=== PATIENT | male | born 1945 | race Caucasian/White ===

== ENCOUNTER 2022-01-17 19:29 | Inpatient (IN) | payer MEDICARE, OTHER ==
[~2022-01-17] VITALS: Ht 172.7 cm; Wt 77.0 kg
[2022-01-17 20:34] LABS: Hematocrit 36.1 % (41.0-53.0); Hemoglobin 11.5 g/dL (13.5-17.5); Mean Corpuscular Hemoglobin 28.9 pg (28.0-32.0); Mean Corpuscular Hgb Conc. 31.8 g/dL (32.0-36.0); Mean Corpuscular Volume 90.9 fL (80.0-100.0); Red Blood Cells 3.98 10^6/uL (4.5-5.90); Red Cell Distribution Width 18.1 % (11.8-14.3); White Blood Cell 7.6 10^3/uL (4.4-10.8)
[2022-01-17 20:53] LABS: Albumin 3.1 g/dL (3.4-5.0); BUN/Creatinine Ratio 18.3; Calcium 8.1 mg/dL (8.5-10.1); Potassium 4.4 mmol/L (3.5-5.1)
[2022-01-17 20:56] LABS: Bilirubin, Total 1.1 mg/dL (0.2-1.0); Total Protein 5.5 g/dL (6.4-8.2)
[2022-01-17 21:01] LABS: Basophils % (manual) 0 (0.0-2.0); Blast Cells 0; Eosinophils % (manual) 0 (0-7); Myelocytes % 0; Promyelocytes % 0; Reactive Lymphocytes 0
[2022-01-17 21:44] LABS: Band Neutrophils % (manual) 5; Lymphocytes % (manual) 1 (10.0-50.0); Metamyelocytes % 1; Monocytes % (manual) 2 (0-12)
[2022-01-17 23:54] LABS: Basophils # (auto) 0 10 ^3/uL (0-0.2); Basophils % (auto) 0.3 % (0.0-2.0); Eosinophils # (auto) 0 10 ^3/uL (0-0.8); Eosinophils % (auto) 0.1 % (0.0-7.0); Hematocrit 35.7 % (41.0-53.0); Hemoglobin 11.4 g/dL (13.5-17.5); Lymphocytes # (auto) 0.5 10 ^3/uL (0.4-5.4); Mean Corpuscular Hemoglobin 28.9 pg (28.0-32.0); Mean Corpuscular Hgb Conc. 31.8 g/dL (32.0-36.0); Mean Corpuscular Volume 90.8 fL (80.0-100.0); Monocytes # (auto) 0.5 10 ^3/uL (0-1.3); Monocytes % (auto) 5.8 % (0.0-12.0); Neutrophils # (auto) 7.8 10 ^3/uL (1.6-8.6); Neutrophils % (auto) 87.8 % (37.0-80.0); Nucleated Red Blood Cells % 0.2 %; Red Blood Cells 3.93 10^6/uL (4.5-5.90); Red Cell Distribution Width 17.7 % (11.8-14.3); White Blood Cell 8.9 10^3/uL (4.4-10.8)
[2022-01-18 00:05] LABS: Albumin 2.7 g/dL (3.4-5.0); Calcium 7.9 mg/dL (8.5-10.1); Potassium 4.6 mmol/L (3.5-5.1)
[2022-01-18 00:08] LABS: BUN/Creatinine Ratio 26.2; Bilirubin, Total 0.6 mg/dL (0.2-1.0); Total Protein 5.4 g/dL (6.4-8.2)
[2022-01-18] MEDS ORDERED: ONDANSETRON HCL 4 MG/2 ML VIAL IV ONE (03:15)
[2022-01-18] MEDS ORDERED: MORPHINE SULFATE 4 MG/ML SYR/VIAL IV ONE (03:15)
[2022-01-18] MEDS ORDERED: AZITHROMYCIN 500MG/ 250ML 250 ML IV ONE (03:15)
[2022-01-18] MEDS ORDERED: cefTRIAXone 1GM/50ML D5W 50 ML IV ONE (03:15)
[2022-01-18] MEDS ORDERED: ONDANSETRON HCL 4 MG/2 ML VIAL IV PRN (03:45)
[2022-01-18] MEDS ORDERED: MORPHINE SULFATE INJ 2 MG/ml SYRG IV PRN (03:45)
[2022-01-18] MEDS ORDERED: DOCUSATE SOD 100 MG CAP PO PRN (03:45)
[2022-01-18] MEDS ORDERED: ACETAMINOPHEN 325 MG TAB PO PRN (03:45)
[2022-01-18] MEDS ORDERED: NITROGLYCERIN 0.4 MG SL TAB SL PRN (03:45)
[2022-01-18 04:43] LABS: Basophils # (auto) 0 10 ^3/uL (0-0.2); Basophils % (auto) 0.1 % (0.0-2.0); Eosinophils # (auto) 0 10 ^3/uL (0-0.8); Eosinophils % (auto) 0.1 % (0.0-7.0); Hematocrit 36.7 % (41.0-53.0); Hemoglobin 11.8 g/dL (13.5-17.5); Lymphocytes # (auto) 0.5 10 ^3/uL (0.4-5.4); Mean Corpuscular Hemoglobin 28.9 pg (28.0-32.0); Mean Corpuscular Hgb Conc. 32.1 g/dL (32.0-36.0); Monocytes # (auto) 0.4 10 ^3/uL (0-1.3); Monocytes % (auto) 5.3 % (0.0-12.0); Neutrophils # (auto) 5.9 10 ^3/uL (1.6-8.6); Neutrophils % (auto) 86.5 % (37.0-80.0); Nucleated Red Blood Cells % 0.1 %; Red Blood Cells 4.08 10^6/uL (4.5-5.90); Red Cell Distribution Width 17.9 % (11.8-14.3); White Blood Cell 6.8 10^3/uL (4.4-10.8)
[2022-01-18 04:55] LABS: Albumin 2.8 g/dL (3.4-5.0); Calcium 8.2 mg/dL (8.5-10.1); Potassium 4.2 mmol/L (3.5-5.1)
[2022-01-18 05:00] LABS: Bilirubin, Total 0.6 mg/dL (0.2-1.0); Total Protein 5.7 g/dL (6.4-8.2)
[2022-01-18] MEDS ORDERED: ALBUMIN 25% 100 ML IV ONE (07:30)
[2022-01-18] MEDS: cefTRIAXone 1GM/50ML D5W 50 ML IV SCH (09:26)
[2022-01-18] MEDS: FAMOTIDINE (10MG/ML) 2ML VL IV SCH ×2 (11:11→22:37)
[2022-01-18] MEDS: AZITHROMYCIN 500MG/ 250ML 250 ML IV SCH (12:40)
[2022-01-18] MEDS ORDERED: CHOLECALCIFEROL (VITD3) 2,000 UNIT CAP/TAB PO ONE (17:00)
[2022-01-18] MEDS ORDERED: ZINC SULFATE 220mg CAP or TAB PO ONE (17:00)
[2022-01-18 21:11] LABS: Alcohol, Urine < 3.0 mg/dL (0-10); Amphetamine Screen, Urine NEGATIVE (NEGATIVE); Barbiturate Scree,Urine NEGATIVE (NEGATIVE); Benzodiazephine Screen, Urine NEGATIVE (NEGATIVE); Cannabinoid Screen, Urine NEGATIVE (NEGATIVE); Cocaine Screen, Urine NEGATIVE (NEGATIVE); Opiate Scree,Urine POSITIVE (NEGATIVE); Phencyclidine Screen, Urine NEGATIVE (NEGATIVE)
[2022-01-18 21:31] LABS: Urine Bacteria FEW /hpf (None Seen); Urine Blood Negative /uL (Negative); Urine Mucus FEW (None Seen); Urine Specific Gravity 1.016 (1.001-1.035); Urine WBC 1 /hpf (0 - 3)
[2022-01-18] MEDS: MORPHINE SULFATE INJ 2 MG/ml SYRG IV PRN (22:37)
[2022-01-18] MEDS: ASCORBIC ACID 500 MG TAB PO SCH (22:37)
[2022-01-19] MEDS: hydrALAZINE HCL 20 MG/ML VL IV PRN (00:36)
[2022-01-19 05:46] LABS: Basophils # (auto) 0 10 ^3/uL (0-0.2); Basophils % (auto) 0.2 % (0.0-2.0); Eosinophils # (auto) 0 10 ^3/uL (0-0.8); Eosinophils % (auto) 0.4 % (0.0-7.0); Hematocrit 34.8 % (41.0-53.0); Hemoglobin 11.7 g/dL (13.5-17.5); Lymphocytes # (auto) 0.5 10 ^3/uL (0.4-5.4); Lymphocytes % (auto) 6.1 % (10.0-50.0); Mean Corpuscular Hemoglobin 29.9 pg (28.0-32.0); Mean Corpuscular Hgb Conc. 33.7 g/dL (32.0-36.0); Mean Corpuscular Volume 88.9 fL (80.0-100.0); Monocytes # (auto) 0.6 10 ^3/uL (0-1.3); Monocytes % (auto) 6.4 % (0.0-12.0); Neutrophils # (auto) 7.7 10 ^3/uL (1.6-8.6); Neutrophils % (auto) 86.9 % (37.0-80.0); Nucleated Red Blood Cells % 0.1 %; Red Blood Cells 3.91 10^6/uL (4.5-5.90); Red Cell Distribution Width 17.7 % (11.8-14.3); White Blood Cell 8.9 10^3/uL (4.4-10.8)
[2022-01-19 05:47] LABS: Potassium 3.4 mmol/L (3.5-5.1)
[2022-01-19 05:50] LABS: Albumin 2.8 g/dL (3.4-5.0); BUN/Creatinine Ratio 32.6; Calcium 8.1 mg/dL (8.5-10.1)
[2022-01-19 05:59] LABS: Bilirubin, Total 0.8 mg/dL (0.2-1.0); Total Protein 5.1 g/dL (6.4-8.2)
[2022-01-19 09:00] VITALS: BP 120/66
[2022-01-19] MEDS ORDERED: POTASSIUM CHL 20 Meq TABLET PO ONE (09:00)
[2022-01-19] MEDS: cefTRIAXone 1GM/50ML D5W 50 ML IV SCH (09:30)
[2022-01-19] MEDS: ZINC SULFATE 220mg CAP or TAB PO SCH (10:30)
[2022-01-19] MEDS: CHOLECALCIFEROL (VITD3) 2,000 UNIT CAP/TAB PO SCH (10:30)
[2022-01-19] MEDS: ASCORBIC ACID 500 MG TAB PO SCH ×2 (10:30→22:41)
[2022-01-19] MEDS: FAMOTIDINE (10MG/ML) 2ML VL IV SCH ×2 (10:30→22:41)
[2022-01-19] MEDS: AZITHROMYCIN 500MG/ 250ML 250 ML IV SCH (11:00)
[2022-01-19] MEDS: ENOXAPARIN SOD 40 MG/0.4 ML SYRINGE SC SCH (12:00)
[2022-01-19] MEDS: DexAMETHasone SOD PHOS 10MG/1ML VIAL INJ IV SCH (12:15)
[2022-01-19 13:00] VITALS: BP 144/74
[2022-01-19] MEDS: HYDROcodone-ACET 5/325MG TAB PO PRN ×3 (13:05→22:42)
[2022-01-19] MEDS ORDERED: GABA100C9 PO (14:09)
[2022-01-19] MEDS ORDERED: HYDR200T36 PO (14:09)
[2022-01-19] MEDS ORDERED: PRE5T PO (14:09)
[2022-01-19] MEDS ORDERED: METH2.5T PO (14:09)
[2022-01-19] MEDS ORDERED: LOSA-69 PO (14:09)
[2022-01-19] MEDS ORDERED: PRAV20TA3 PO (14:09)
[2022-01-19] MEDS ORDERED: HYDR-4902 PO (14:09)
[2022-01-19] MEDS ORDERED: ASPI-543 PO (14:09)
[2022-01-19 17:00] VITALS: BP 165/90
[2022-01-19 18:36] VITALS: BP 136/62
[2022-01-19] MEDS: MORPHINE SULFATE INJ 2 MG/ml SYRG IV PRN (20:35)
[2022-01-19 22:00] VITALS: BP 132/68
[2022-01-20 05:00] VITALS: BP 160/88
[2022-01-20 07:00] LABS: BUN/Creatinine Ratio 31.1; Calcium 8.5 mg/dL (8.5-10.1); Potassium 4.2 mmol/L (3.5-5.1)
[2022-01-20 09:00] VITALS: BP 150/81
[2022-01-20] MEDS: cefTRIAXone 1GM/50ML D5W 50 ML IV SCH (09:18)
[2022-01-20] MEDS: ZINC SULFATE 220mg CAP or TAB PO SCH (09:18)
[2022-01-20] MEDS: HYDROcodone-ACET 5/325MG TAB PO PRN (09:18)
[2022-01-20] MEDS: AZITHROMYCIN 500MG/ 250ML 250 ML IV SCH (09:18)
[2022-01-20] MEDS: DexAMETHasone SOD PHOS 10MG/1ML VIAL INJ IV SCH (09:18)
[2022-01-20] MEDS: ENOXAPARIN SOD 40 MG/0.4 ML SYRINGE SC SCH (09:18)
[2022-01-20] MEDS: FAMOTIDINE (10MG/ML) 2ML VL IV SCH ×2 (09:18→22:06)
[2022-01-20] MEDS: CHOLECALCIFEROL (VITD3) 2,000 UNIT CAP/TAB PO SCH (09:18)
[2022-01-20] MEDS: ASCORBIC ACID 500 MG TAB PO SCH ×2 (09:18→22:06)
[2022-01-20] MEDS: MORPHINE SULFATE INJ 2 MG/ml SYRG IV PRN ×3 (12:04→22:49)
[2022-01-20 12:59] VITALS: BP 149/75
[2022-01-20] MEDS: hydrALAZINE HCL 20 MG/ML VL IV PRN (17:42)
[2022-01-20 22:00] VITALS: BP 138/75
[2022-01-21 04:43] VITALS: BP 158/84
[2022-01-21 09:00] VITALS: BP 158/90
[2022-01-21] MEDS: FAMOTIDINE (10MG/ML) 2ML VL IV SCH ×2 (09:08→21:13)
[2022-01-21] MEDS: cefTRIAXone 1GM/50ML D5W 50 ML IV SCH (09:08)
[2022-01-21] MEDS: ZINC SULFATE 220mg CAP or TAB PO SCH (09:08)
[2022-01-21] MEDS: ASCORBIC ACID 500 MG TAB PO SCH ×2 (09:08→21:13)
[2022-01-21] MEDS: CHOLECALCIFEROL (VITD3) 2,000 UNIT CAP/TAB PO SCH (09:08)
[2022-01-21] MEDS: DexAMETHasone SOD PHOS 10MG/1ML VIAL INJ IV SCH (09:09)
[2022-01-21] MEDS: ENOXAPARIN SOD 40 MG/0.4 ML SYRINGE SC SCH (09:09)
[2022-01-21] MEDS ORDERED: ALBUTEROL SULF 2.5 MG/0.5ML(0.5%) NEB SOLN NEB PRN (09:30)
[2022-01-21] MEDS: AZITHROMYCIN 500MG/ 250ML 250 ML IV SCH (10:11)
[2022-01-21 11:30] VITALS: BP 158/90
[2022-01-21 13:00] VITALS: BP 149/89
[2022-01-21 17:00] VITALS: BP 149/80
[2022-01-21] MEDS: HYDROcodone-ACET 5/325MG TAB PO PRN (21:14)
[2022-01-21 22:00] VITALS: BP 163/86
[2022-01-22 04:58] VITALS: BP 141/89
[2022-01-22] MEDS: HYDROcodone-ACET 5/325MG TAB PO PRN ×2 (05:11→08:49)
[2022-01-22] MEDS: DexAMETHasone SOD PHOS 10MG/1ML VIAL INJ IV SCH (08:47)
[2022-01-22] MEDS: cefTRIAXone 1GM/50ML D5W 50 ML IV SCH (08:48)
[2022-01-22] MEDS: ENOXAPARIN SOD 40 MG/0.4 ML SYRINGE SC SCH (08:48)
[2022-01-22] MEDS: ZINC SULFATE 220mg CAP or TAB PO SCH (08:48)
[2022-01-22] MEDS: hydrALAZINE HCL 20 MG/ML VL IV PRN (08:48)
[2022-01-22] MEDS: AZITHROMYCIN 500MG/ 250ML 250 ML IV SCH (08:48)
[2022-01-22] MEDS: CHOLECALCIFEROL (VITD3) 2,000 UNIT CAP/TAB PO SCH (08:48)
[2022-01-22] MEDS: ASCORBIC ACID 500 MG TAB PO SCH ×2 (08:49→21:42)
[2022-01-22 09:00] VITALS: BP 165/90
[2022-01-22] MEDS: FAMOTIDINE (10MG/ML) 2ML VL IV SCH ×2 (09:46→21:43)
[2022-01-22] MEDS ORDERED: ASPirin 81 mg TAB PO ONE (11:00)
[2022-01-22] MEDS ORDERED: LOSARTAN POTASSIUM 50 MG TAB PO ONE (11:00)
[2022-01-22] MEDS ORDERED: hydrOXYchloroQUINE SULFATE 200 MG TAB PO ONE (11:00)
[2022-01-22] MEDS: GABAPENTIN 100 MG CAP PO SCH ×2 (12:05→21:42)
[2022-01-22 13:52] VITALS: BP 115/53
[2022-01-22 16:47] VITALS: BP 134/70
[2022-01-22 22:00] VITALS: BP 147/78
[2022-01-23 05:00] VITALS: BP 175/86
[2022-01-23] MEDS: hydrALAZINE HCL 20 MG/ML VL IV PRN (05:18)
[2022-01-23] MEDS: HYDROcodone-ACET 5/325MG TAB PO PRN ×2 (05:19→11:55)
[2022-01-23] MEDS: GABAPENTIN 100 MG CAP PO SCH ×2 (05:46→15:43)
[2022-01-23 06:38] LABS: Basophils # (auto) 0 10 ^3/uL (0-0.2); Basophils % (auto) 0.1 % (0.0-2.0); Eosinophils # (auto) 0 10 ^3/uL (0-0.8); Hematocrit 37.6 % (41.0-53.0); Hemoglobin 12.7 g/dL (13.5-17.5); Lymphocytes # (auto) 0.7 10 ^3/uL (0.4-5.4); Lymphocytes % (auto) 10.8 % (10.0-50.0); Mean Corpuscular Hemoglobin 29.9 pg (28.0-32.0); Mean Corpuscular Hgb Conc. 33.8 g/dL (32.0-36.0); Mean Corpuscular Volume 88.3 fL (80.0-100.0); Monocytes # (auto) 0.6 10 ^3/uL (0-1.3); Neutrophils # (auto) 5.3 10 ^3/uL (1.6-8.6); Neutrophils % (auto) 80.1 % (37.0-80.0); Nucleated Red Blood Cells % 0.1 %; Red Blood Cells 4.26 10^6/uL (4.5-5.90); Red Cell Distribution Width 17.7 % (11.8-14.3); White Blood Cell 6.6 10^3/uL (4.4-10.8)
[2022-01-23 06:55] LABS: BUN/Creatinine Ratio 32.7; Calcium 8.7 mg/dL (8.5-10.1); Potassium 4.1 mmol/L (3.5-5.1)
[2022-01-23 08:00] VITALS: BP 135/69
[2022-01-23] MEDS ORDERED: ASPirin-EC 81 mg tab PO SCH (10:00)
[2022-01-23] MEDS ORDERED: hydrOXYchloroQUINE SULFATE 200 MG TAB PO SCH (10:00)
[2022-01-23] MEDS ORDERED: LOSARTAN POTASSIUM 50 MG TAB PO SCH (10:00)
[2022-01-23] MEDS: cefTRIAXone 1GM/50ML D5W 50 ML IV SCH (11:53)
[2022-01-23] MEDS: AZITHROMYCIN 500MG/ 250ML 250 ML IV SCH (11:53)
[2022-01-23] MEDS: FAMOTIDINE (10MG/ML) 2ML VL IV SCH (11:53)
[2022-01-23] MEDS: ZINC SULFATE 220mg CAP or TAB PO SCH (11:53)
[2022-01-23] MEDS: DexAMETHasone SOD PHOS 10MG/1ML VIAL INJ IV SCH (11:53)
[2022-01-23] MEDS: ASCORBIC ACID 500 MG TAB PO SCH (11:55)
[2022-01-23] MEDS: ENOXAPARIN SOD 40 MG/0.4 ML SYRINGE SC SCH (11:55)
[2022-01-23] MEDS: CHOLECALCIFEROL (VITD3) 2,000 UNIT CAP/TAB PO SCH (11:55)
[2022-01-23 12:00] VITALS: BP 125/63
[2022-01-23 16:00] VITALS: BP 122/76
[2022-01-23 18:04] VITALS: BP 125/63
== END 2022-01-23 18:57 | disposition home health service (06) | DRG 177 ==
LOC: ER 19:29 → EDSEX 19:29 → EDBD 19:29 → TELE 01-18 03:53 → TELE-WESTW 01-19 08:20
PROVIDERS: ADMIT Nurse Practitioner Family; ATTEND Internal Medicine Geriatric Medicine
DX: U07.1 COVID-19 (principal); J12.82 Pneumonia due to coronavirus disease 2019; J96.00 Acute respiratory failure, unspecified whether with hypoxia or hypercapnia; S22.31XA Fracture of one rib, right side, initial encounter for closed fracture; E44.0 Moderate protein-calorie malnutrition; J44.0 Chronic obstructive pulmonary disease with (acute) lower respiratory infection; J98.11 Atelectasis; I95.9 Hypotension, unspecified; D64.9 Anemia, unspecified; Z68.25 Body mass index [BMI] 25.0-25.9, adult; R73.9 Hyperglycemia, unspecified; W18.39XA Other fall on same level, initial encounter; D69.6 Thrombocytopenia, unspecified; I10 Essential (primary) hypertension; M06.9 Rheumatoid arthritis, unspecified; M19.90 Unspecified osteoarthritis, unspecified site; Z79.899 Other long term (current) drug therapy; Z85.828 Personal history of other malignant neoplasm of skin; Z87.891 Personal history of nicotine dependence; Y93.89 Activity, other specified; Y92.89 Other specified places as the place of occurrence of the external cause; Y99.8 Other external cause status
CPT/HCPCS: 36415; 70450; 71250; 80048; 80053; 80307; 81001; 82728; 83605; 83880; 84484; 85007; 85025; 85027; 85379; 87081; 87426; 93005; 96365; 96375; 97110; 97116; 97163; 97530; 99291; G0378; J0696; J1100; J2405; J3490; P9047